=== PATIENT | male | born 1970 | race Caucasian/White ===

== ENCOUNTER 2023-01-26 08:11 | Day surgery (SDC) | payer OTHER ==
[~2023-01-26 08:11] MED LIST: ALBU18HF12 IH; AMLO5TAB66 PO; ASPI-1450 PO; ATOR10TA PO; CLOP75TA60 PO; GABA-1181 PO; LISI20TA24 PO; METO25 PO; MONT-35 PO; NITR0.4T50 SL; SODIUM CHLORIDE 0.9% 1,000 ML ONE
[2023-01-26] MEDS ORDERED: SODIUM CHLORIDE 0.9% 1,000 ML IV ONE (08:30)
[2023-01-26] MEDS ORDERED: DiphenhydrAMINE HCL 50 MG CAPSULE ONE (08:33)
[2023-01-26] MEDS ORDERED: DIAZEPAM 5 MG TABLET ONE (08:33)
[2023-01-26] MEDS ORDERED: ASPIRIN 81 MG CHEWABLE TABLET ONE (08:34)
[2023-01-26] MEDS ORDERED: CLOP75TA60 PO (08:39)
[2023-01-26] MEDS ORDERED: HEPARIN SODIUM 1000 UNITS/NS 1,000 ML ONE (09:10)
[2023-01-26] MEDS ORDERED: SODIUM BICARBONATE 50 MEQ/50 ML VIAL ONE (09:10)
[2023-01-26] MEDS ORDERED: LIDOCAINE/PF 1% 30 ML VIAL ONE (09:10)
[2023-01-26] MEDS ORDERED: IOHEXOL 300 MG/ML 10 ML VIAL ONE (09:10)
[2023-01-26] MEDS ORDERED: FentaNYL CITRATE PF 100 MCG/2 ML VIAL ONE ×2 (09:54→10:37)
[2023-01-26] MEDS ORDERED: MIDAZOLAM HCL 2 MG/2 ML VIAL ONE ×2 (09:54→10:37)
[2023-01-26] MEDS ORDERED: DIAZEPAM 5 MG TABLET PO ONE (10:30)
[2023-01-26] MEDS ORDERED: ASPIRIN 81 MG CHEWABLE TABLET PO ONE (10:30)
[2023-01-26] MEDS ORDERED: DiphenhydrAMINE HCL 50 MG CAPSULE PO ONE (10:30)
[2023-01-26] MEDS ORDERED: MIDAZOLAM HCL 2 MG/2 ML VIAL IVP ONE ×4 (10:45→11:00)
[2023-01-26] MEDS ORDERED: HEPARIN SODIUM 2,000 UNITS in HEPARIN SODIUM 1000 UNITS/NS 1,000 ML IARTER ONE (10:45)
[2023-01-26] MEDS ORDERED: LIDOCAINE 1% 30 ML/SOD BICARB 8.4% 4 ML SQ ONE (10:45)
[2023-01-26] MEDS ORDERED: FentaNYL CITRATE PF 100 MCG/2 ML VIAL IVP ONE ×4 (10:45→11:00)
[2023-01-26] MEDS ORDERED: IOHEXOL 300 MG/ML 100 ML VIAL IARTER ONE (10:45)
[2023-01-26] MEDS ORDERED: GABA-1216 PO (11:13)
[2023-01-26] MEDS ORDERED: LISI-893 PO (11:13)
[2023-01-26] MEDS ORDERED: ACETAMINOPHEN 325 MG TABLET PO ONE (14:15)
[2023-01-26] MEDS ORDERED: ACETAMINOPHEN 325 MG TABLET ONE (14:15)
== END 2023-01-26 16:30 | disposition still patient (30) ==
LOC: CATHLAB 08:11
PROVIDERS: ATTEND Internal Medicine Interventional Cardiology
DX: R07.9 Chest pain, unspecified (principal); E78.5 Hyperlipidemia, unspecified; I10 Essential (primary) hypertension; G47.30 Sleep apnea, unspecified; Z98.890 Other specified postprocedural states; Z79.899 Other long term (current) drug therapy; E78.00 Pure hypercholesterolemia, unspecified; Z86.73 Personal history of transient ischemic attack (TIA), and cerebral infarction without residual deficits
CPT/HCPCS: 93458; 99152; 93005; C1760; J3010; J1644; J3490 ×2; J2250; J7030; Q9967